=== PATIENT | male | born 1955 | race Caucasian/White ===

== ENCOUNTER 2017-01-07 21:29 | Emergency (ER) | payer OTHER ==
[2017-01-07 22:59] LABS: HEMOGLOBIN 13.5 gm/dl (14.0-17.5); RED BLOOD COUNT 4.68 M/UL (4.20-5.50); WHITE BLOOD COUNT 21.8 K/UL (4.5-11.0)
[2017-01-07 23:13] LABS: BUN/CREATININE RATIO 16 (0-10)
== END 2017-01-08 01:19 | disposition home or self-care (01) ==
LOC: ER1 21:29
PROVIDERS: Family Medicine
DX: S02.40DA Maxillary fracture, left side, initial encounter for closed fracture (principal); S02.82XA Fracture of other specified skull and facial bones, left side, initial encounter for closed fracture; E11.649 Type 2 diabetes mellitus with hypoglycemia without coma; S00.81XA Abrasion of other part of head, initial encounter; Z88.1 Allergy status to other antibiotic agents; Z79.4 Long term (current) use of insulin; Z79.899 Other long term (current) drug therapy; V43.52XA Car driver injured in collision with other type car in traffic accident, initial encounter; Y93.89 Activity, other specified; Y92.410 Unspecified street and highway as the place of occurrence of the external cause; D72.829 Elevated white blood cell count, unspecified; Z23 Encounter for immunization
CPT/HCPCS: 36415; 70450; 70486; 71010; 80053; 80307; 81001; 82962; 85025; 85610; 85730; 90714; 93005; 99285; G0480

== ENCOUNTER 2020-11-19 07:49 | Emergency (ER) | payer OTHER ==
[2020-11-19 09:01] LABS: HEMOGLOBIN 15.8 gm/dl (14.0-17.5); RED BLOOD COUNT 5.42 M/UL (4.20-5.50); WHITE BLOOD COUNT 29.7 K/UL (4.5-11.0)
[2020-11-19 09:17] LABS: BORDETELLA PARAPERTUSSIS Not Detected (Not Detectd); BORDETELLA PERTUSSIS Not Detected (Not Detectd); CHLAMYDIA PNEUMONIAE Not Detected (Not Detectd); CORONAVIRUS HKU1 Not Detected (Not Detectd); CORONAVIRUS NL63 Not Detected (Not Detectd); CORONAVIRUS OC43 Not Detected (Not Detectd); CORONOAVIRUS 229E Not Detected (Not Detectd); HUMAN METAPNEUMOVIRUS Not Detected (Not Detectd); HUMAN RHINOVIRUS/ENTEROVIRUS Not Detected (Not Detectd); INFLUENZA A Not Detected (Not Detectd); INFLUENZA B Not Detected (Not Detectd); MYCOPLASMA PNEUMONIAE Not Detected (Not Detectd); PARAINFLUENZA VIRUS 1 Not Detected (Not Detectd); PARAINFLUENZA VIRUS 2 Not Detected (Not Detectd); PARAINFLUENZA VIRUS 3 Not Detected (Not Detectd); PARAINFLUENZA VIRUS 4 Not Detected (Not Detectd); RESPIRATORY SYNCYTIAL VIRUS Not Detected (Not Detectd)
[2020-11-19 09:25] LABS: BUN/CREATININE RATIO 12 (0-10)
[2020-11-19] MEDS ORDERED: ZITHROMAX500 MG PO (10:49)
[2020-11-19] MEDS ORDERED: OMNICEF 300 MG300 MG PO (10:49)
[2020-11-19 11:16] LABS: SARS-CoV-2 NOT DETECTED (Not Detectd)
== END 2020-11-19 11:30 | disposition home or self-care (01) ==
LOC: ER1 07:49
PROVIDERS: Physician Assistant
DX: J18.9 Pneumonia, unspecified organism (principal); I25.2 Old myocardial infarction; E10.9 Type 1 diabetes mellitus without complications; E03.9 Hypothyroidism, unspecified; Z87.891 Personal history of nicotine dependence; Z20.822 Contact with and (suspected) exposure to COVID-19
CPT/HCPCS: 36600; 71045; 80053; 82550; 82553; 82803; 82962; 83605; 83874; 84484; 85025; 87040; 87633; 93005; 94760; 96374; 99283; J0696

== ENCOUNTER → 2021-01-16 | Outpatient (CLI) | payer OTHER ==
[~2021-01-16] MED LIST: OMNICEF 300 MG300 MG PO; ZITHROMAX500 MG PO
== END ==
LOC: KOH-I 01-11 11:00
DX: D72.829 Elevated white blood cell count, unspecified (principal)
CPT/HCPCS: 74150

== ENCOUNTER → 2021-01-24 | Outpatient (CLI) | payer OTHER | LOC: RAD 11:51 | DX: C92.10 Chronic myeloid leukemia, BCR/ABL-positive, not having achieved remission (principal); R91.8 Other nonspecific abnormal finding of lung field | CPT/HCPCS: 71046; 93005 ==

== ENCOUNTER → 2021-08-29 | Outpatient (CLI) | payer MEDICARE, OTHER | LOC: US 09:43 | DX: C92.10 Chronic myeloid leukemia, BCR/ABL-positive, not having achieved remission (principal) | CPT/HCPCS: 93970 ==